=== PATIENT | female | born 1980 | race Caucasian/White ===

== ENCOUNTER → 2017-02-18 | Outpatient (CLI) | payer BC ==
[~2017-02-18] MED LIST: CEPH-443 PO; IBUP800T25 PO; ONDA4TAB35 PO
[2017-02-18 09:26] LABS: BASOPHILS % 0.3 % (0.0-2.0); EOSINOPHILS # 0.1 10^3/ul (0.0-0.5); EOSINOPHILS % 1.4 % (0.0-7.0); HEMATOCRIT 37.8 % (37.0-47.0); HEMOGLOBIN 12.5 g/dl (12.0-16.0); LYMPHOCYTES # 1.6 10^3/ul (0.8-2.9); LYMPHOCYTES % 21.5 % (15.0-51.0); MEAN CORPUSCULAR HEMOGLOBIN 30.1 pg (29.0-33.0); MEAN CORPUSCULAR HGB CONC 33.1 g/dl (32.0-37.0); MEAN CORPUSCULAR VOLUME 91.1 fl (82.0-101.0); MEAN PLATELET VOLUME 10.7 fl (7.4-10.4); MONOCYTE # 0.4 10^3/ul (0.3-0.9); MONOCYTES % 5.9 % (0.0-11.0); NEUTROPHIL # 5.2 10^3/ul (1.6-7.5); NEUTROPHILS % 70.6 % (39.0-77.0); PLATELET COUNT 241 10^3/UL (140-415); RED BLOOD COUNT 4.15 10^6/ul (4.20-5.40); RED CELL DISTRIBUTION WIDTH 12.2 % (11.5-14.5); WHITE BLOOD COUNT 7.3 10^3/ul (4.8-10.8)
[2017-02-18 09:43] LABS: ALBUMIN 4.2 g/dl (3.3-4.9); ALBUMIN/GLOBULIN RATIO 1.07; BILIRUBIN,INDIRECT 0.3 mg/dl (0-1.1); BILIRUBIN,TOTAL 0.3 mg/dl (0.2-1.3); CALCIUM 9.1 mg/dl (8.4-10.2); CHOL/HDL RATIO 2.5 RATIO; CREATININE 0.59 mg/dl (0.44-1.00); TOTAL PROTEIN 8.1 g/dl (6.1-8.1)
--- NOTE | 2017-02-18 10:02 | RADRPT ---
PROCEDURE: XR Hand. CLINICAL INDICATION: Right thumb pain, no trauma TECHNIQUE: 3 views of the right hand were obtained. COMPARISON: No prior studies are available for comparison. FINDINGS: There is no acute fracture. There is minimal radial subluxation of the first metacarpal base. Mild degenerative change at the first carpometacarpal joint are present with small marginal osteophy te formation. Mild adjacent soft tissue swelling at the first CMC joint otherwise soft tissues are normal. Chronic deformity of the scaphoid likely is from a remote fracture. IMPRESSION: 1. No radiographic evidence of acute osseous abnormality. 2. Mild first carpometacarpal joint osteoarthrosis with minimal radial subluxation of the first meta carpal base and mild overlying soft tissue swelling. RPTAT: UU .Los Castillo MD, Date Time Electronically viewed and signed by .Lso Castillo MD, on 02/18/2017 10:02 .K/
[2017-02-18 11:46] LABS: THYROID STIMULATING HORMONE 0.428 MIU/L (0.465-4.680)
[2017-02-19 13:46] LABS: ANA SCREEN NEGATIVE (NEGATIVE)
== END | disposition home or self-care (01) ==
LOC: LAB 08:40
PROVIDERS: ATTEND Internal Medicine
DX: E78.5 Hyperlipidemia, unspecified (principal); D64.9 Anemia, unspecified; E03.9 Hypothyroidism, unspecified; R73.03 Prediabetes
CPT/HCPCS: 80053; 80061; 83036; 84436; 84443; 85025; 85651; 86038

== ENCOUNTER 2017-02-23 10:04 | Inpatient (IN) | payer BC ==
[~2017-02-23] VITALS: Ht 167.6 cm; Wt 72.6 kg
[2017-02-23] MEDS ORDERED: morphine 4 MG/ML VIAL IV STA (10:09)
[2017-02-23] MEDS ORDERED: ONDANSETRON 4 MG INJ IV STA ×2 (10:09→10:32)
[2017-02-23] MEDS ORDERED: HYDROmorphONE 1 MG/ML SYG IV STA (10:32)
--- NOTE | 2017-02-23 10:35 | RADRPT ---
PROCEDURE: XR Chest. CLINICAL INDICATION: chest pain, abdominal pain TECHNIQUE: Single frontal view of the chest was obtained COMPARISON: None FINDINGS: The heart and mediastinum are within normal limits. The lungs are clear. There is no pleural effusion or pneumothorax. RPTAT: AA IMPRESSION: No acute disease. .Heron Torres MD, MD Date Time Electronically viewed and signed by .Heron Torres MD, on 02/23/2017 10:35 .S/
[2017-02-23 10:44] LABS: BASOPHILS % 0.3 % (0.0-2.0); EOSINOPHILS # 0.1 10^3/ul (0.0-0.5); EOSINOPHILS % 1.1 % (0.0-7.0); HEMATOCRIT 39.2 % (37.0-47.0); HEMOGLOBIN 13.1 g/dl (12.0-16.0); LYMPHOCYTES # 1.9 10^3/ul (0.8-2.9); LYMPHOCYTES % 21.5 % (15.0-51.0); MEAN CORPUSCULAR HEMOGLOBIN 30.3 pg (29.0-33.0); MEAN CORPUSCULAR HGB CONC 33.4 g/dl (32.0-37.0); MEAN CORPUSCULAR VOLUME 90.7 fl (82.0-101.0); MONOCYTE # 0.5 10^3/ul (0.3-0.9); MONOCYTES % 5.7 % (0.0-11.0); NEUTROPHIL # 6.2 10^3/ul (1.6-7.5); NEUTROPHILS % 71.1 % (39.0-77.0); PLATELET COUNT 254 10^3/UL (140-415); RED BLOOD COUNT 4.32 10^6/ul (4.20-5.40); RED CELL DISTRIBUTION WIDTH 12.2 % (11.5-14.5); WHITE BLOOD COUNT 8.8 10^3/ul (4.8-10.8)
[2017-02-23] MEDS ORDERED: BELLADONNA/PHENOBARBITAL TAB PO STA (10:47)
[2017-02-23] MEDS ORDERED: LIDOCAINE/MYLANTA 40 ML BTL PO STA (10:47)
[2017-02-23] MEDS ORDERED: LORAZEPAM 2 MG INJ IV ONE (11:00)
[2017-02-23 11:01] LABS: INR 0.99; PROTIME 13.1 Sec (12.2-14.2)
[2017-02-23 11:02] LABS: ALANINE AMINOTRANSFERASE 97 IU/L (13-69); ALBUMIN 4.4 g/dl (3.3-4.9); ALBUMIN/GLOBULIN RATIO 0.95; ALKALINE PHOSPHATASE 84 IU/L (42-121); AMYLASE 97 U/L (11-123); ANION GAP 13 (8-16); ASPARTATE AMINO TRANSFERASE 54 IU/L (15-46); BILIRUBIN,INDIRECT 0.2 mg/dl (0-1.1); BILIRUBIN,TOTAL 0.2 mg/dl (0.2-1.3); BLOOD UREA NITROGEN 25 mg/dl (7-20); CALCIUM 9.7 mg/dl (8.4-10.2); CARBON DIOXIDE 25 mmol/L (21-31); CHLORIDE 104 mmol/L (97-110); CREATINE KINASE 45 IU/L (23-200); CREATININE 0.72 mg/dl (0.44-1.00); GLUCOSE 86 mg/dl (70-220); POTASSIUM 3.9 mmol/L (3.5-5.1); SODIUM 138 mmol/L (135-144)
[2017-02-23] MEDS ORDERED: SOD CHLORIDE 0.9% 1,000 ML IV STA (11:27)
[2017-02-23 11:28] LABS: PARTIAL THROMBOPLASTIN TIME 26.4 Sec (25.0-35.0)
[2017-02-23 11:37] LABS: CK-MB 0.28 ng/ml (0.0-2.4)
[2017-02-23 11:39] LABS: TROPONIN-I < 0.012 ng/ml (0.00-0.12)
[2017-02-23 11:45] LABS: D-DIMER 581.4 ng/ml (<460)
[2017-02-23] MEDS ORDERED: IOHEXOL 350MG/ML 50 ML BTL ONE (12:31)
[2017-02-23] MEDS ORDERED: SOD CHLORIDE 0.9% 100 ML ONE (12:31)
[2017-02-23] MEDS ORDERED: IOHEXOL 100 ML ONE (12:31)
--- NOTE | 2017-02-23 13:13 | RADRPT ---
PROCEDURE: CT angiogram of the chest abdomen and pelvis with contrast. CLINICAL INDICATION: Rule out aortic dissection. Chest pain and abdominal pain TECHNIQUE: CT scan of the chest with contrast was performed on a multidetector high-resolution CT scan. The patient was scanned following the uncomplicated intravenous administration of 115 ml Omni paque 350. Coronal and sagittal reformatted images were obtained from the axial source images. Stand jose armando CT angiogram of the chest with contrast protocols were performed. 2-D and 3-D reformats were per formed. The total exam CTDI equals 37.56 mGy and the total exam DLP equals 797.38 mGy-cm. One or more of the following dose reduction techniques were used: - Automated exposure control. - Adjustment of the mA and/or kV according to patient size. Use of iterative reconstruction technique. COMPARISON: Chest earlier same day FINDINGS: The aorta is normal in size without evidence of aneurysm or dissection. No periaortic fluid collecti ons. The central pulmonary arteries are unremarkable without pulmonary emboli no evidence of pulmonary ar terial hypertension. No right heart strain. The brachial cephalic artery is unremarkable. The right and left subclavian arteries are unremarkabl e. The proximal aspects of the right and left common carotid and vertebral arteries are unremarkable . The celiac axis, SMA, JORGE, and solitary right and left renal arteries are unremarkable. The right left common iliac, internal iliac and external iliac arteries are unremarkable. The right and left common femoral and proximal aspects of the right and left superficial femoral and deep femo ral arteries are unremarkable. Specifically no hemodynamically significant stenosis, NASCET criteria. Negative for aneurysm dissect ion or thrombosis. There are bilateral breast implants in place. Tiny fat containing umbilical hernia without herniated bowel or strangulation. The thoracic abdominal pelvic mccain are otherwise unremarkable. The heart is normal limits in size without pericardial effusion. No evidence of pleural effusions or pneumothoraces. Minimal dependent lung atelectasis. Remainder lungs are clear without infiltrates o r pulmonary nodules. No evidence of mediastinal hilar or axillary lymphadenopathy. The liver spleen pancreas adrenal glands kidneys and gallbladder are unremarkable. No evidence bilia ry ductal dilation or hydronephrosis. The urinary bladder is unremarkable. The uterus is anteverted anteflexed but otherwise unremarkable. In the right adnexa are cystic maki s consistent with ovarian cysts approximately 3 cm each. A pelvic ultrasound may be helpful for furt her evaluation. No evidence of left adnexal masses. Negative for intra-abdominal free air, free flui d, abscesses or lymphadenopathy. The stomach, small bowel, large bowel and appendix are unremarkable. IMPRESSION: 1. No evidence of aortic aneurysm or dissection. 2. No evidence of central pulmonary emboli. Negative for pulmonary arterial hypertension or right h eart strain. 3. No hemodynamically significant stenosis (NASCET criteria), dissection aneurysm or thrombosis. 4. No evidence of acute lung infiltrates, pulmonary nodules,, thoracic effusions or pneumothoraces. 5. No evidence of visceral masses. Negative for obstructive uropathy or biliary ductal dilation. 6. No evidence of abdominal free air fluid abscesses or lymphadenopathy. 7. No calcified urinary calculi or obstructive uropathy. 8. Right adnexal cystic mass as likely ovarian cyst. Pelvic ultrasound may be helpful for further e valuation. 9. Tiny fat containing a focal hernia without herniated bowel or strangulation. 10. No evidence of visceral masses. Negative for gastrointestinal disease. RPTAT:AAJJ Physician Silvano Date Time Electronically viewed and signed by Physician Silvano on 02/23/2017 13:13 /
[2017-02-23 14:00] VITALS: TEMP 98.9
--- NOTE | 2017-02-23 14:22 | ERD ---
ER Documentation Chief Complaint Date/Time DATE: 02/23/17 TIME: 14:17 Chief Complaint epigastric pain x 30mins ago, nausea no vomiting HPI This is a 36-year-old female with no past medical history who is an employee at [employer] and while at work developed a sudden onset of severe retrosternal and epigastric pain. She stated the pain was 10 out of 10 in intensity. It was a pressure-like sensation that began to radiate to the left side of her chest and back. She denied any numbness or tingling of her neck or left upper extremity. She states she has never had any similar pain in the past. She denies any shortness of breath at rest or exertion. She is no swelling or tenderness of her lower extremities. She denies any lower abdominal pain. She felt lightheaded became pale and had mild diaphoresis. She was immediately instructed to come to the emergency department to be further evaluated. She was standing at the onset of her symptoms no alleviating or exacerbating factors to her pain. ROS All systems reviewed and are negative except as per history of present illness. Medications Home Meds Discontinued Reported Medications Ibuprofen* (Motrin*) 800 Mg Tab, PO Q8 12/06/11 Discontinued Scripts Cephalexin* (Keflex*) 500 Mg Capsule, 500 MG PO QID for 5 Days, CAP Prov:NAKUL VAUGHN MD 10/15/15 Ondansetron Hcl* (Zofran* ODT) 4 mg -ODT Tab.disper, 4 MG PO Q6 Y for NAUSEA AND /OR VOMITING, #30 TAB Prov:TAISHA ROBERTO 10/11/15 Allergies Allergies: Coded Allergies: erythromycin base (Verified Allergy, Mild, 10/15/15) PMhx/Soc History of Surgery: Yes (left wrist surgery) Anesthesia Reaction: No Hx Neurological Disorder: No Hx Respiratory Disorders: No Hx Cardiac Disorders: No Hx Psychiatric Problems: No Hx Miscellaneous Medical Probl: No Hx Alcohol Use: No Hx Substance Use: No Hx Tobacco Use: No Smoking Status: Never smoker Physical Exam Vitals Vital Signs Date Time Temp Pulse Resp B/P Pulse Ox O2 Delivery O2 Flow Rate FiO2 02/23/17 11:06 84 23 102/58 100 Room Air 02/23/17 10:30 87 16 132/75 100 02/23/17 10:24 98.5 88 16 115/78 100 Physical Exam Constitutional:Well-developed. Well-nourished. Appeared to be in severe discomfort. HEENT:Normocephalic. Atraumatic.Pupils were equal round reactive to light. Moist mucous membranes.No tonsillar exudates. Neck: No nuchal rigidity. No lymphadenopathy. No posterior cervical spine tenderness or step-offs. Respiratory: Not using accessory muscles of respiration.Lungs were clear to auscultation bilaterally. No rhonchi. No rales. No wheezing. Cardiovascular: Regular rate regular rhythm.No murmurs. No rubs were appreciated.S1, S2 normal. Distal pulses are palpable 2+ bilaterally. GI: Abdomen was soft. Nontender. Reproducible epigastric terminal tenderness. Non Distended. No pulsatile abdominal masses or bruits. No rebound. No guarding. Bowel sounds were present and normal. Muscle skeletal: Full range of motion of both the upper and lower extremities bilaterally.Normal muscle tone.No assymetrical calf tenderness or swelling. Skin: Pallor. Diaphoretic. No petechia, no purpura. No lesions on the palms or the soles of the feet. No maculopapular rash. NEURO: Patient was alert, awake, orientated x3.No facial droop. Gait observed and normal with no ataxia.Speech had regular rate and rhythm. No focal neurological deficits. Result Diagram: 02/23/17 1020 02/23/17 1020 Results 24 hrs Laboratory Tests Test 02/23/17 10:20 White Blood Count 8.810^3/ul Red Blood Count 4.3210^6/ul Hemoglobin 13.1g/dl Hematocrit 39.2% Mean Corpuscular Volume 90.7fl Mean Corpuscular Hemoglobin 30.3pg Mean Corpuscular Hemoglobin Concent 33.4g/dl Red Cell Distribution Width 12.2% Platelet Count 38058^3/UL Mean Platelet Volume 11.0fl Neutrophils % 71.1% Lymphocytes % 21.5% Monocytes % 5.7% Eosinophils % 1.1% Basophils % 0.3% Nucleated Red Blood Cells % 0.0/100WBC Neutrophils # 6.210^3/ul Lymphocytes # 1.910^3/ul Monocytes # 0.510^3/ul Eosinophils # 0.110^3/ul Basophils # 0.010^3/ul Nucleated Red Blood Cells # 0.010^3/ul Prothrombin Time 13.1Sec Prothrombin Time Ratio 1.0 INR International Normalized Ratio 0.99 Activated Partial Thromboplast Time 26.4Sec D-Dimer 581.40ng/ml D-Dimer Comment Sodium Level 138mmol/L Potassium Level 3.9mmol/L Chloride Level 104mmol/L Carbon Dioxide Level 25mmol/L Anion Gap 13 Blood Urea Nitrogen 25mg/dl Creatinine 0.72mg/dl Glucose Level 86mg/dl Calcium Level 9.7mg/dl Total Bilirubin 0.2mg/dl Direct Bilirubin 0.00mg/dl Indirect Bilirubin 0.2mg/dl Aspartate Amino Transf (AST/SGOT) 54IU/L Alanine Aminotransferase (ALT/SGPT) 97IU/L Alkaline Phosphatase 84IU/L Creatine Kinase 45IU/L Creatine Kinase Index 0.6 Creatinine Kinase MB (Mass) 0.28ng/ml Troponin I < 0.012ng/ml Total Protein 9.0g/dl Albumin 4.4g/dl Globulin 4.60g/dl Albumin/Globulin Ratio 0.95 Amylase Level 97U/L Lipase 60U/L Serum HCG, Qualitative NEGATIVE Current Medications Medications (Trade) Dose Ordered Sig/Mita Route PRN Reason Start Time Stop Time Status Last Admin Dose Admin Morphine Sulfate (morphine) 4 mg ONCE STAT IV 02/23/17 10:09 02/23/17 10:12 DC 02/23/17 11:04 Ondansetron HCl (Zofran Inj) 4 mg ONCE STAT IV 02/23/17 10:09 02/23/17 10:12 DC 02/23/17 11:03 Lorazepam (Ativan) 1 mg ONCE ONCE IV 02/23/17 11:00 02/23/17 11:01 DC 02/23/17 11:05 Hydromorphone HCl (Dilaudid) 1 mg ONCE STAT IV 02/23/17 10:32 02/23/17 10:34 DC 02/23/17 11:05 Ondansetron HCl (Zofran Inj) 4 mg ONCE STAT IV 02/23/17 10:32 02/23/17 10:34 DC 02/23/17 11:04 Miscellaneous Medication (Gi Cocktail (2)) 40 ml ONCE STAT PO 02/23/17 10:47 02/23/17 10:49 DC 02/23/17 11:05 Belladonna/ Phenobarbital 2 tab 2 tab ONCE STAT PO 02/23/17 10:47 02/23/17 10:49 DC 02/23/17 11:03 Sodium Chloride (NS) 1,000 ml @ 1,000 mls/hr Q1H STAT IV 02/23/17 11:27 02/23/17 12:26 DC 02/23/17 11:43 IV Flush 10 ml 10 ml STK-MED ONCE .ROUTE 02/23/17 12:31 02/23/17 12:32 DC Sodium Chloride 100 ml @ ud STK-MED ONCE .ROUTE 02/23/17 12:31 02/23/17 12:32 DC Iohexol (Omnipaque) 100 ml @ ud STK-MED ONCE .ROUTE 02/23/17 12:31 02/23/17 12:32 DC Iohexol (Omnipaque 350mg/ ml) 50 ml STK-MED ONCE .ROUTE 02/23/17 12:31 02/23/17 12:32 DC Procedures/MDM The patient presented to the emergency department with epigastric and chest pain. My differential diagnosis included but was not limited to abdominal aortic aneurysm, choledocholithiasis, gallstone ileus, renal colic, pyelonephritis, pancreatitis, peptic ulcer disease, atypical myocardical infarction, mesenteric ischemia, GERD, pulmonary infarction. The patient was placed on a diagnostic cardiac sonographer, continuous pulse oximetry and IV access was established by nursing staff. An EKG was obtained to rule out myocardial ischemia. There was no elevation of LFTs to suggest ductal obstruction, cholangitis, cholecystiitis or hepatitis. Given that the urinalysis did not show bilirubinuria, my suspicion for common duct obstruction or hepatitis was low. 12 Lead EKG tracing ordered and reviewed by myself showed: Normal sinus rhythm of 74 bpm and no arrhythmia. ND interval normal. QRS duration normal. No ST segment elevation No ST segment depression. No changes consistent with acute ischemia. Chest radiograph showed no evidence of pneumonia pneumothorax or widened mediastinum The patient appeared to be in a significant amount discomfort despite being given intravenous morphine Ativan and Dilaudid. The patient was diaphoretic and had a low pretest probability according to the well's criteria for pulmonary embolism. I obtained a d-dimer and this was elevated. Given the severity of the patient's symptoms I did feel was necessary to obtain a CT scan of the patient's chest and abdomen to rule out pulmonary embolism or aortic dissection. The findings of the CT scan read by the radiologist and indicated the followin. No evidence of aortic aneurysm or dissection. 2. No evidence of central pulmonary emboli. Negative for pulmonary arterial hypertension or right heart strain. 3. No hemodynamically significant stenosis (NASCET criteria), dissection aneurysm or thrombosis. 4. No evidence of acute lung infiltrates, pulmonary nodules,, thoracic effusions or pneumothoraces. 5. No evidence of visceral masses. Negative for obstructive uropathy or biliary ductal dilation. 6. No evidence of abdominal free air fluid abscesses or lymphadenopathy. 7. No calcified urinary calculi or obstructive uropathy. 8. Right adnexal cystic mass as likely ovarian cyst. Pelvic ultrasound may be helpful for further evaluation. 9. Tiny fat containing a focal hernia without herniated bowel or strangulation. 10. No evidence of visceral masses. Negative for gastrointestinal disease. Patient will be admitted for further evaluation into the cause of the patient's epigastric and chest discomfort. She did receive aspirin p.o. She will be admitted to observation under the care of her primary care physician Dr. Cevallos in serious condition Departure Diagnosis: Primary Impression: Epigastric pain Condition: Serious SUSY GONSALES Feb 23, 2017 14:22
[2017-02-23] MEDS ORDERED: ONDANSETRON 4 MG INJ IV PRN (15:00)
[2017-02-23] MEDS ORDERED: ACETAMINOPHEN 325 MG TAB PO PRN (15:00)
[2017-02-23] MEDS ORDERED: ASPIRIN 81 MG TAB PO ONE (15:00)
[2017-02-23 15:53] VITALS: Ht 167.6 cm; Wt 72.6 kg
[2017-02-23 16:30] VITALS: PULSE 69
[2017-02-23] MEDS ORDERED: morphine 10 MG INJ IM PRN (16:30)
[2017-02-23 16:34] VITALS: BP 119/65; RESP 18
[2017-02-23] MEDS: ONDANSETRON 4 MG INJ IV PRN (16:46)
[2017-02-23] MEDS: SUCRALFATE (100 MG/ML) 10ML CUP GTB SCH ×2 (16:46→20:25)
[2017-02-23] MEDS: DEXTROSE 5%-0.45% NACL 1,000 ML IV SCH (17:52)
[2017-02-23 18:58] LABS: CREATINE KINASE 33 IU/L (23-200)
[2017-02-23 19:10] LABS: CK-MB 0.32 ng/ml (0.0-2.4)
[2017-02-23 19:38] LABS: TROPONIN-I < 0.012 ng/ml (0.00-0.12)
[2017-02-23] MEDS ORDERED: ZOLPIDEM 5 MG TAB PO PRN (20:00)
[2017-02-23 20:03] VITALS: PULSE 75
--- NOTE | 2017-02-23 20:15 | CONS ---
Date/Time of Note Date/Time of Note DATE: 02/23/17 TIME: 20:15 Assessment/Plan Assessment/Plan Additional Assessment/Plan Abdominal and chest pain -Patient with severe abdominal and chest pain which is sharp in nature and worse with deep inspiration. She is status post CT angiogram which is ruled out aortic dissection, pulmonary emboli. There was no evidence of hydronephrosis as well. Serial cardiac enzymes remain negative, ECG with no significant ischemic abnormalities. Bedside echocardiogram currently being performed [place] with no evidence of pericardial effusion with normal ejection fraction. It appears patient's symptoms improved after taking Carafate. Would concurrently evaluate other noncardiac causes of patient's symptoms. Continue on telemetry monitoring. Consultation Date/Type/Reason Admit Date/Time Feb 23, 2017 at 14:43 Type of Consultation: cv Reason for Consultation Chest pain and abdominal pain Hx of Present Illness This is a 36-year-old female with no significant past medical history who presents with symptoms of severe abdominal and chest pain. Patient was at work and developed a stabbing-like sensation which began in the epigastric region radiating to her left shoulder. Pain was sharp in nature and with deep breathing would exacerbate pain. There was no associated shortness of breath patient with shallow breathing secondary to pain. Symptoms worsen over the next few minutes and patient went to the emergency room. Patient was given multiple pain medications including GI cocktail. Patient states she felt better after taking aspirin and a "pink liquid". She otherwise denies exertional chest pain or shortness of breath, dizziness or palpitations or shortness of breath. She had a similar episode yesterday which lasted a few minutes and improved after taking aspirin and ibuprofen. 12 point review of systems was performed with all pertinent positives and negatives mentioned above and all else is negative Past Medical History Medical History: no pertinent history Family History Significant Family History: no pertinent family hx Social History Alcohol Use: none Smoking Status: Never smoker Drug Use: none Other Social History Works in the radiology department Exam/Review of Systems Vital Signs Vitals Vital Signs Date Time Temp Pulse Resp B/P Pulse Ox O2 Delivery O2 Flow Rate FiO2 02/23/17 16:34 98.3 74 18 119/65 98 02/23/17 16:02 Room Air Exam No apparent distress, at bedside Constitutional: alert, oriented Head: normocephalic Respiratory: clear to auscultation, normal air movement Cardiovascular: other (S1-S2 heard), regular rate and rhythm Gastrointestinal: bowel sounds, other (Discomfort with deep palpation in the epigastric region and right upper quadrant), soft Extremities: other (No edema) Results Result Diagram: 02/23/17 1020 02/23/17 1020 Results 24 hrs Laboratory Tests Test 02/23/17 10:20 02/23/17 18:26 White Blood Count 8.8 # Red Blood Count 4.32 Hemoglobin 13.1 Hematocrit 39.2 Mean Corpuscular Volume 90.7 Mean Corpuscular Hemoglobin 30.3 Mean Corpuscular Hemoglobin Concent 33.4 Red Cell Distribution Width 12.2 Platelet Count 254 Mean Platelet Volume 11.0 H Neutrophils % 71.1 Lymphocytes % 21.5 Monocytes % 5.7 Eosinophils % 1.1 Basophils % 0.3 Nucleated Red Blood Cells % 0.0 Neutrophils # 6.2 Lymphocytes # 1.9 Monocytes # 0.5 Eosinophils # 0.1 Basophils # 0.0 Nucleated Red Blood Cells # 0.0 Prothrombin Time 13.1 Prothrombin Time Ratio 1.0 INR International Normalized Ratio 0.99 Activated Partial Thromboplast Time 26.4 D-Dimer 581.40 H D-Dimer Comment Sodium Level 138 Potassium Level 3.9 Chloride Level 104 Carbon Dioxide Level 25 Anion Gap 13 Blood Urea Nitrogen 25 H Creatinine 0.72 Glucose Level 86 Calcium Level 9.7 Total Bilirubin 0.2 Direct Bilirubin 0.00 Indirect Bilirubin 0.2 Aspartate Amino Transf (AST/SGOT) 54 H Alanine Aminotransferase (ALT/SGPT) 97 H Alkaline Phosphatase 84 Creatine Kinase 45 33 Creatine Kinase Index 0.6 1.0 Creatinine Kinase MB (Mass) 0.28 0.32 Troponin I < 0.012 < 0.012 Total Protein 9.0 H Albumin 4.4 Globulin 4.60 H Albumin/Globulin Ratio 0.95 Amylase Level 97 Lipase 60 Serum HCG, Qualitative NEGATIVE Medications Medications Current Medications Ondansetron HCl 4 mg 4 mg Q4H PRN IV NAUSEA AND/OR VOMITING Last administered on 02/23/17 16:46; Admin Dose 4 MG; Start 02/23/17 at 16:30 Dextrose/Sodium Chloride (D5-1/2ns) 1,000 ml @ 75 mls/hr [id number] IV Last administered on 02/23/17 17:52; Admin Dose 75 MLS/HR; Start 02/23/17 at 16:30 Sucralfate (Carafate Susp) 1 gm QID GTB Last administered on 02/23/17t 16:46; Admin Dose 1 GM; Start 02/23/17 at 17:00 Pantoprazole (Protonix Iv) 40 mg DAILY@06 IV ; Start 02/24/17 at 06:00 Morphine Sulfate (morphine) 4 mg Q4H PRN IV PAIN LEVEL 7-10; Start 02/23/17 at 16:30 Enoxaparin Sodium (Lovenox) 30 mg HS SC ; Start 02/23/17 at 20:00 Aspirin (Halfprin) 81 mg DAILY PO ; Start 02/24/17 at 09:00 Zolpidem Tartrate (Ambien) 10 mg HS PRN PO INSOMNIA; Start 02/23/17 at 20:00 Procedures Procedures ECG with sinus rhythm, normal QRS duration, nonspecific ST abnormalities Francis Brand DO Feb 23, 2017 20:15
--- NOTE | 2017-02-23 20:18 | HP ---
DATE OF ADMISSION: 02/23/2017 CHIEF COMPLAINT/HISTORY OF PRESENT ILLNESS: Patient is a 36-year- old lady presenting to the emergency room with sudden onset of severe retrosternal and epigastric pain, felt like a pressure- like sensation and was radiating to the back and also described as burning in type, and the pain was constant, and there were no palpitations or shortness of breath. Patient did complain of some diaphoresis, and pain was also pleuritic. Patient had mild epigastric pain last night and denies having any prior history of peptic ulcer disease, GI bleeds. Patient was evaluated in the emergency room and was admitted. MEDICATIONS: None. ALLERGIES: AZITHROMYCIN. PRIOR SURGERIES: Include left wrist surgery by Dr. Pulido. REVIEW OF SYSTEMS: HEAD: Occasional headaches. Patient has been having mild hair loss over the last 2-1/2 months. EYES: No blurry vision or glaucoma. ENT: No sinusitis, tonsillitis, or hearing loss. NECK: No history of neck pain. No history of thyroid disease. CHEST: No bronchitis, hayfever or asthma. Patient does not smoke. CARDIOVASCULAR: No prior history of chest pains. No history of hyperlipidemia. GASTROINTESTINAL: No constipation, diarrhea, change of bowel habits. No history of hematemesis or melena. BMs every alternate day. Patient denies any prior history of peptic ulcer disease or GI bleeds. GENITOURINARY: No dysuria, hematuria, or kidney stones. Has been followed by [facility] regularly. SKIN: No history of moles. History of vitiligo, which has worsened since last 4 years. FAMILY HISTORY: Father at age 54, cirrhosis with complications. Mother has history of skin cancer. Patient had 1 brother, who of Vuong's sarcoma. PHYSICAL EXAMINATION: GENERAL APPEARANCE: Patient is an average-built female, who is in moderate distress. HEENT: Normocephalic, atraumatic. Pupils are equal. Mucous membranes dry. NECK: No lymphadenopathy. No bruits. CHEST: Decreased breath sounds at bases. No rales or rhonchi. No pleural rub. HEART: S1, S2. No definite gallops or murmurs. ABDOMEN: Soft, nontender. Mild epigastric tenderness, with no rebound. Bowel sounds are active. No bruits heard over the epigastrium. No hepatosplenomegaly. EXTREMITIES: No edema. Homans sign is negative. NEUROLOGIC: No localizing or lateralizing signs. LABORATORY: Sodium 138, potassium 3.9. Troponin less than 0.012. WBC count 8.8, hematocrit 39.2, platelet count 254,000. D-dimer 581.4. Chest x-ray shows heart, mediastinum normal. Lungs are clear. No pleural effusion. No pneumothorax. CTA of the chest, abdomen and pelvis shows no evidence of aneurysm or dissection of the aorta, pulmonary arteries without pulmonary emboli. No evidence of pulmonary hypertension. EKG shows nonspecific ST-T-wave changes. IMPRESSION: 1. Atypical chest pain/epigastric pain. So far, no evidence of acute myocardial infarction, dissection or pulmonary embolism. 2. Positive peptic ulcer disease. Esophagitis to be considered. PLAN: Will repeat troponin and EKG. Start the patient on Lovenox. Continue PPI, along with Carafate. Will request Dr. Brand for Cardiology evaluation. Patient has had outpatient workup, normal lipid panel. We will hold statins for now. Patient had received aspirin x1. Will continue aspirin, along with antacids. Closely monitor the rhythm. Treat symptomatically. Dictated By: Chuy Cevallos MD /radha/bruce /Document#: [id number]
[2017-02-23 20:28] VITALS: BP 119/62; RESP 18
[2017-02-23] MEDS: ENOXAPARIN 30 MG/0.3 ML SYG SC SCH (20:34)
--- NOTE | 2017-02-23 20:54 | RADRPT ---
Echocardiogram Report Patient Name: DERRICK CASTILLO Gender: Female Date: 1980 Study Date: 23-Feb-2017 Energy Economist: [facility] Location: 518-A Ref. Physician: FATUMA PERRY Quality: Adequate Procedures: Transthoracic echocardiogram with complete 2D, M-Mode, and doppler examination. Indications: Chest Pain. 2D/M Mode Doppler Measurement Value Normal Ranges Measurement Value Normal Ranges LVIDd 2D 4.4 3.5 - 5.6 cm AV Peak [place] 1.7 m/sec LVIDs 2D 2.8 2.1 - 4.1 cm AV Peak PG 12.0 mmHg FS 2D 35.2 % LVOT Peak [place] 1.3 m/sec LVPWd 2D 0.9 0.6 - 1.1 cm LVOT Peak PG 7.0 mmHg IVSd 2D 0.9 0.6 - 1.1 cm MV E Peak [place] 1.1 m/sec IVS/LVPW 2D 1.0 MV A Peak [place] 0.9 m/sec AoR Diam 2D 2.6 2.0 - 3.7 cm MV E/A 1.2 LA/Ao 2D 1 0 - 1 MV Decel Time 190 msec EDV 2D 83.5 cm3 MV E/A 1.2 ESV 2D 22.7 cm3 TR Peak Irwin 2.8 m/sec LA Dimen 2D 3.8 2.3 - 4.0 cm TR Peak PG 31.0 mmHg RVSP 34.0 mmHg Findings Left Ventricle: Normal left ventricular systolic function. Normal left ventricular cavity size. Normal left ventricular wall thickness. Ejection fraction is visually estimated at 65 %. Tissue Doppler/Mitral Doppler indices are within normal limits. Right Ventricle: Normal right ventricular size. Normal right ventricular systolic function. Left Atrium: The left atrium is normal in size. Right Atrium: The right atrium is normal in size. Mitral Valve: Normal appearance and function of the mitral valve with trace physiologic regurgitation. Aortic Valve: No significant aortic stenosis or insufficiency. Aortic valve not well visualized. Tricuspid Valve: Normal appearance and function of the tricuspid valve with trace physiologic regurgitation. Estimated peak PA systolic pressure 34 mmHg. Pulmonic Valve: Pulmonic valve not well visualized. There is trace pulmonic regurgitation. Pericardium: Normal pericardium with no significant pericardial effusion. Aorta: Normal aortic root. IVC: Normal size and normal respiratory collapse consistent with normal right atrial pressure. Conclusions 1.Normal left ventricular systolic function. Normal left ventricular cavity size. Normal left ventricular wall thickness. Ejection fraction is visually estimated at 65 %. Tissue Doppler/Mitral Doppler indices are within normal limits. 2.Normal right ventricular size. Normal right ventricular systolic function. 3.The left atrium is normal in size. 4.The right atrium is normal in size. 5.No significant valvular stenosis or regurgitation seen. 6.Normal pericardium with no significant pericardial effusion. Electronically Signed By: Francis Brand 23-Feb-2017 20:53:44 -0700 Patient Name: DERRICK CASTILLO Study Date: 23-Feb-2017 [id number]
[2017-02-23 23:54] VITALS: BP 101/66; RESP 19
[2017-02-24] VITALS (11 sets, daily range): BP systolic 93–115; BP diastolic 51–62; PULSE 48–77; RESP 18–20
[2017-02-24 01:21] LABS: CREATINE KINASE 35 IU/L (23-200)
[2017-02-24 01:28] LABS: CK-MB 0.27 ng/ml (0.0-2.4)
[2017-02-24 01:46] LABS: TROPONIN-I < 0.012 ng/ml (0.00-0.12)
[2017-02-24] MEDS: DEXTROSE 5%-0.45% NACL 1,000 ML IV SCH ×3 (05:50→14:19)
[2017-02-24] MEDS: PANTOPRAZOLE 40 MG INJ IV SCH (06:47)
[2017-02-24] MEDS: morphine 4 MG/ML VIAL IV PRN ×2 (07:07→22:05)
[2017-02-24] MEDS: ONDANSETRON 4 MG INJ IV PRN ×4 (07:30→22:04)
[2017-02-24 08:32] LABS: BASOPHILS % 0.3 % (0.0-2.0); EOSINOPHILS # 0.1 10^3/ul (0.0-0.5); EOSINOPHILS % 0.6 % (0.0-7.0); HEMATOCRIT 31.1 % (37.0-47.0); HEMOGLOBIN 10.6 g/dl (12.0-16.0); LYMPHOCYTES # 1.2 10^3/ul (0.8-2.9); LYMPHOCYTES % 15.5 % (15.0-51.0); MEAN CORPUSCULAR HEMOGLOBIN 30.7 pg (29.0-33.0); MEAN CORPUSCULAR HGB CONC 34.1 g/dl (32.0-37.0); MEAN CORPUSCULAR VOLUME 90.1 fl (82.0-101.0); MEAN PLATELET VOLUME 11.7 fl (7.4-10.4); MONOCYTE # 0.5 10^3/ul (0.3-0.9); MONOCYTES % 6.2 % (0.0-11.0); NEUTROPHIL # 6.2 10^3/ul (1.6-7.5); NEUTROPHILS % 77.1 % (39.0-77.0); PLATELET COUNT 164 10^3/UL (140-415); RED BLOOD COUNT 3.45 10^6/ul (4.20-5.40); RED CELL DISTRIBUTION WIDTH 12.6 % (11.5-14.5)
[2017-02-24 09:01] LABS: CREATINE KINASE 31 IU/L (23-200)
[2017-02-24 09:02] LABS: ALBUMIN 3.3 g/dl (3.3-4.9); ALBUMIN/GLOBULIN RATIO 1.03; BILIRUBIN,INDIRECT 0.2 mg/dl (0-1.1); BILIRUBIN,TOTAL 0.2 mg/dl (0.2-1.3); CALCIUM 8.6 mg/dl (8.4-10.2); CREATININE 0.66 mg/dl (0.44-1.00); MAGNESIUM 1.7 mg/dl (1.7-2.5); POTASSIUM 3.8 mmol/L (3.5-5.1); TOTAL PROTEIN 6.5 g/dl (6.1-8.1)
[2017-02-24] MEDS: SUCRALFATE (100 MG/ML) 10ML CUP GTB SCH ×4 (09:03→20:43)
[2017-02-24] MEDS: ASPIRIN (EC) 81 MG TAB PO SCH (09:03)
[2017-02-24 09:04] LABS: C-REACTIVE PROTEIN 2.1 mg/dl (0.0-0.9)
[2017-02-24 09:11] LABS: CK-MB 0.26 ng/ml (0.0-2.4)
[2017-02-24 09:16] LABS: TROPONIN-I < 0.012 ng/ml (0.00-0.12)
--- NOTE | 2017-02-24 12:36 | CONS ---
Date/Time of Note Date/Time of Note DATE: 02/24/17 TIME: 12:34 Assessment/Plan Assessment/Plan Additional Assessment/Plan Abdominal and chest pain Ejection fraction Mildly elevated LFTs -Serial cardiac enzymes remain negative, echocardiogram with no effusion and normal ejection fraction. Patient with mildly elevated LFTs, would order gallbladder ultrasound. Symptoms do not appear cardiac in origin at the current time. Consultation Date/Type/Reason Admit Date/Time Feb 23, 2017 at 14:43 Initial Consult Date Type of Consultation: cv 24 HR Interval Summary Free Text/Dictation Still with episodes of abdominal pain and chest pain which is sharp in nature. Denies shortness of breath, dizziness. Exam/Review of Systems Vital Signs Vitals Vital Signs Date Time Temp Pulse Resp B/P Pulse Ox O2 Delivery O2 Flow Rate FiO2 02/24/17 12:28 48 02/24/17 11:47 Room Air 02/24/17 11:08 98.3 18 93/51 100 Intake and Output 02/23/17 02/23/17 02/24/17 15:00 23:00 07:00 Intake Total 125 ml 900 ml Output Total 3 ml Balance 122 ml 900 ml Exam No apparent distress Constitutional: alert, oriented Head: normocephalic Respiratory: clear to auscultation, normal air movement Cardiovascular: other (S1-S2 heard), regular rate and rhythm Gastrointestinal: bowel sounds, soft, tender (Epigastric and bilateral upper quadrant regions) Extremities: other (No edema) Results Result Diagram: 02/24/17 0721 02/24/17 0721 Results 24 hrs Laboratory Tests Test 02/23/17 18:26 02/24/17 00:43 02/24/17 07:21 Creatine Kinase 33 35 31 Creatine Kinase Index 1.0 0.8 0.8 Creatinine Kinase MB (Mass) 0.32 0.27 0.26 Troponin I < 0.012 < 0.012 < 0.012 White Blood Count 8.0 Red Blood Count 3.45 #L Hemoglobin 10.6 L Hematocrit 31.1 #L Mean Corpuscular Volume 90.1 Mean Corpuscular Hemoglobin 30.7 Mean Corpuscular Hemoglobin Concent 34.1 Red Cell Distribution Width 12.6 Platelet Count 164 # Mean Platelet Volume 11.7 H Neutrophils % 77.1 H Lymphocytes % 15.5 Monocytes % 6.2 Eosinophils % 0.6 Basophils % 0.3 Nucleated Red Blood Cells % 0.0 Neutrophils # 6.2 Lymphocytes # 1.2 Monocytes # 0.5 Eosinophils # 0.1 Basophils # 0.0 Nucleated Red Blood Cells # 0.0 Sodium Level 139 Potassium Level 3.8 Chloride Level 110 Carbon Dioxide Level 23 Anion Gap 10 Blood Urea Nitrogen 9 # Creatinine 0.66 Glucose Level 93 Calcium Level 8.6 Magnesium Level 1.7 Total Bilirubin 0.2 Direct Bilirubin 0.00 Indirect Bilirubin 0.2 Aspartate Amino Transf (AST/SGOT) 84 H Alanine Aminotransferase (ALT/SGPT) 130 H Alkaline Phosphatase 97 C-Reactive Protein 2.1 H Total Protein 6.5 # Albumin 3.3 # Globulin 3.20 Albumin/Globulin Ratio 1.03 Amylase Level 44 Medications Medications Current Medications Ondansetron HCl 4 mg 4 mg Q4H PRN IV NAUSEA AND/OR VOMITING Last administered on 02/24/17 07:30; Admin Dose 4 MG; Start 02/23/17 at 16:30 Dextrose/Sodium Chloride (D5-1/2ns) 1,000 ml @ 75 mls/hr [id number] IV Last administered on 02/24/17 09:03; Admin Dose 75 MLS/HR; Start 02/23/17 at 16:30 Sucralfate (Carafate Susp) 1 gm QID GTB Last administered on 02/24/17 11:17; Admin Dose 1 GM; Start 02/23/17 at 17:00 Pantoprazole (Protonix Iv) 40 mg DAILY@06 IV Last administered on 02/24/17 06: 47; Admin Dose 40 MG; Start 02/24/17 at 06:00 Morphine Sulfate (morphine) 4 mg Q4H PRN IV PAIN LEVEL 7-10 Last administered on 02/24/17 07:07; Admin Dose 4 MG; Start 02/23/17 at 16:30 Enoxaparin Sodium (Lovenox) 30 mg HS SC Last administered on 02/23/17 20:34; Admin Dose 30 MG; Start 02/23/17 at 20:00 Aspirin (Halfprin) 81 mg DAILY PO Last administered on 02/24/17 09:03; Admin Dose 81 MG; Start 02/24/17 at 09:00 Zolpidem Tartrate (Ambien) 10 mg HS PRN PO INSOMNIA; Start 02/23/17 at 20:00 Francis Brand DO Feb 24, 2017 12:36
--- NOTE | 2017-02-24 14:12 | RADRPT ---
Vent Rate: 73 bpm RR Interval: 0 msec IN Interval: 166 msec QRS Duration: 74 msec QT Interval: 400 msec QTC Interval: 440 msec P-R-T [place]: 56 - 61 - 53 degrees Normal sinus rhythm with sinus arrhythmia Septal infarct , age undetermined Abnormal ECG Electronically Signed By: Francis Brand [id number]
--- NOTE | 2017-02-24 14:12 | RADRPT ---
Vent Rate: 58 bpm RR Interval: 0 msec HI Interval: 152 msec QRS Duration: 80 msec QT Interval: 400 msec QTC Interval: 392 msec P-R-T [place]: 32 - 46 - 41 degrees Sinus bradycardia with sinus arrhythmia Otherwise normal ECG Electronically Signed By: Francis Brand [id number]
--- NOTE | 2017-02-24 15:31 | PN ---
DATE: 02/24/2017 SUBJECTIVE: The patient has recurrent epigastric pain, chest pain, very sharp in nature. Denies any shortness of breath. No radiation. Nausea is improved. OBJECTIVE DATA: VITAL SIGNS: Temperature 98.3, blood pressure 93/51, heart rate 58 per minute, O2 sat 100 percent on room air. HEENT: Head normocephalic. Mild pallor with cyanosis. CHEST: Clinically clear. HEART: S1, S2. No definite gallops. ABDOMEN: Abdomen is soft. Mild epigastric and right upper quadrant tenderness without rebound. EXTREMITIES: No edema. Homans negative. LABORATORY DATA: Hematocrit 39.2 yesterday, dropped to 31.1 today. Platelet count 164,000. Potassium 3.8, BUN 9, creatinine 0.66. AST is 84, ALT is 130, alk phos is 97. Troponin x3 is negative. C-reactive protein is 2.1. Dr. Brand's cardiac consultation and recommendations greatly appreciated. IMPRESSION: 1. Atypical chest pain. So far, no evidence of acute myocardial infarction or acute coronary syndrome. 2. Elevated liver function tests with abdominal pain right upper quadrant pain. Cholelithiasis to be considered. 3. Mild anemia cough to consider low grade gastrointestinal bleed, query peptic ulcer disease. PLAN: We will obtain stool for OP x2. Closely monitor hemoglobin and hematocrit. Follow cardiac recommendations per Dr. Brand. The patient has already been scheduled for a gallbladder ultrasound. We will follow up on the results, if it is negative will need upper endoscopy. Dictated By: Chuy Cevallos MD /radha/daniel /Document#: [id number]
--- NOTE | 2017-02-24 17:59 | RADRPT ---
PROCEDURE: US Abdomen (right upper quadrant). CLINICAL INDICATION: Right upper quadrant abdomen pain. Elevated liver enzymes. TECHNIQUE: Multiple real-time longitudinal and transverse images of the right upper quadrant of th e abdomen were acquired utilizing a curved array transducer. Images were reviewed on a high-resoluti on PACS workstation. COMPARISON: None FINDINGS: The liver is borderline enlarged. Hepatic echogenicity is normal. There is no focal hepatic lesion. Color Doppler and pulsed Doppler sonography demonstrate normal a ntegrade flow in the portal vein. There is sludge in the gallbladder. There are no gallstones and there is no fluid around the gallbla dder. The bile ducts are normal with the common bile duct measuring 1.7 mm in diameter. The visualized portions of the pancreas are unremarkable with obscuration of the tail of the pancrea s. No free fluid is present. The right kidney measures 9.2 cm. There is normal echogenicity of the right kidney. There is no p erinephric fluid collection. No hydronephrosis, mass, or calculus is seen. IMPRESSION: 1. Borderline hepatomegaly. 2. Sludge in the gallbladder. No gallstones or evidence of cholecystitis. 3. Otherwise normal right upper quadrant abdomen ultrasound. RPTAT: QQ .Rafael Miranda MD, MD Date Time Electronically viewed and signed by .Rafael Miranda MD, on 02/24/2017 17:59 .R/
[2017-02-24] MEDS: ENOXAPARIN 30 MG/0.3 ML SYG SC SCH (20:43)
[2017-02-25] VITALS (20 sets, daily range): BP systolic 94–127; BP diastolic 51–79; PULSE 43–77; RESP 16–25
[2017-02-25] MEDS: DEXTROSE 5%-0.45% NACL 1,000 ML IV SCH (01:41)
[2017-02-25] MEDS: PANTOPRAZOLE 40 MG INJ IV SCH (06:00)
[2017-02-25 06:18] LABS: BASOPHILS % 0.5 % (0.0-2.0); EOSINOPHILS # 0.2 10^3/ul (0.0-0.5); EOSINOPHILS % 3.4 % (0.0-7.0); HEMATOCRIT 31.7 % (37.0-47.0); HEMOGLOBIN 10.7 g/dl (12.0-16.0); LYMPHOCYTES # 1.5 10^3/ul (0.8-2.9); LYMPHOCYTES % 27.5 % (15.0-51.0); MEAN CORPUSCULAR HEMOGLOBIN 30.6 pg (29.0-33.0); MEAN CORPUSCULAR HGB CONC 33.8 g/dl (32.0-37.0); MEAN CORPUSCULAR VOLUME 90.6 fl (82.0-101.0); MEAN PLATELET VOLUME 11.4 fl (7.4-10.4); MONOCYTE # 0.4 10^3/ul (0.3-0.9); MONOCYTES % 7.5 % (0.0-11.0); NEUTROPHIL # 3.4 10^3/ul (1.6-7.5); NEUTROPHILS % 60.9 % (39.0-77.0); PLATELET COUNT 157 10^3/UL (140-415); RED CELL DISTRIBUTION WIDTH 12.4 % (11.5-14.5); WHITE BLOOD COUNT 5.6 10^3/ul (4.8-10.8)
[2017-02-25 06:46] LABS: CALCIUM 8.4 mg/dl (8.4-10.2); CREATININE 0.73 mg/dl (0.44-1.00); MAGNESIUM 1.6 mg/dl (1.7-2.5); POTASSIUM 3.4 mmol/L (3.5-5.1)
[2017-02-25] MEDS: ASPIRIN (EC) 81 MG TAB PO SCH (09:00)
[2017-02-25] MEDS: SUCRALFATE (100 MG/ML) 10ML CUP GTB SCH ×4 (09:00→20:55)
[2017-02-25] MEDS ORDERED: POTASSIUM CHLORIDE 40 MEQ in DEXTROSE 5%-0.45% NACL 1,000 ML IV SCH (09:58)
[2017-02-25 10:49] LABS: HAAIG REFLEX REFLEX FILED
[2017-02-25] MEDS ORDERED: MAGNESIUM SULFATE 3 GM in SOD CHLORIDE 0.9% 100 ML IVPB ONE (11:30)
[2017-02-25] MEDS: ONDANSETRON 4 MG INJ IV PRN ×2 (12:09→23:10)
[2017-02-25] MEDS: D5W-0.45 NACL + KCL 40 MEQ 1,000 ML IV SCH ×2 (12:10→19:56)
[2017-02-25 13:34] LABS: HEPATITIS B CORE ANTIBODY NEGATIVE (NEGATIVE)
--- NOTE | 2017-02-25 15:25 | CONS ---
Date/Time of Note Date/Time of Note DATE: 02/25/17 TIME: 15:16 Assessment/Plan Assessment/Plan Additional Assessment/Plan Assessment * Chest/epigastric pain Cardiac vs non cardiac Plan * EGD today risks and benefit explained to patient agreed with the planned procedure * case discussed with Dr River * Further orders will depend on clinical course Consultation Date/Type/Reason Admit Date/Time Feb 23, 2017 at 14:43 Date of Consultation: Feb 25, 2017 Type of Consultation: gastroenterology Reason for Consultation epigastric pain Hx of Present Illness 36 year old female who presented with severe chest and epigastric pain with associated nausea and vomiting.Pain was described as severe sharp and retrosternal in location.Patiennt denies shortness of breath or dyspnea.Emergency roon workup revealed CTA revealed 1. No evidence of aortic aneurysm or dissection. 2. No evidence of central pulmonary emboli. Negative for pulmonary arterial hypertension or right heart strain. 3. No hemodynamically significant stenosis (NASCET criteria), dissection aneurysm or thrombosis. 4. No evidence of acute lung infiltrates, pulmonary nodules,, thoracic effusions or pneumothoraces. 5. No evidence of visceral masses. Negative for obstructive uropathy or biliary ductal dilation. 6. No evidence of abdominal free air fluid abscesses or lymphadenopathy. 7. No calcified urinary calculi or obstructive uropathy. 8. Right adnexal cystic mass as likely ovarian cyst. Pelvic ultrasound may be helpful for further evaluation. 9. Tiny fat containing a focal hernia without herniated bowel or strangulation. 10. No evidence of visceral masses. Negative for gastrointestinal disease. Ultrasound gallbladder revealed . Borderline hepatomegaly. Sludge in the gallbladder. No gallstones or evidence of cholecystitis. Otherwise normal right upper quadrant abdomen ultrasound. CBC revealed anemia and troponin was negative Presently patient has mild epigastric pain ,much improved than yesterday. Constitutional: improved, no complaints Eyes: no complaints ENT: no complaints Respiratory: no complaints Cardiovascular: no complaints Gastrointestinal: pain Genitourinary: no complaints Musculoskeletal: no complaints Skin: no complaints Neurologic: no complaints Endocrine: no complaints Lymphatic: no complaints Psychological: nl mood/affect, no complaints Immunologic: no complaints Past Medical History Medical History: no pertinent history Social History Alcohol Use: none Smoking Status: Never smoker Drug Use: none Exam/Review of Systems Vital Signs Vitals Vital Signs Date Time Temp Pulse Resp B/P Pulse Ox O2 Delivery O2 Flow Rate FiO2 02/25/17 12:00 63 02/25/17 10:57 98.5 18 106/57 97 02/24/17 16:26 Room Air Intake and Output 02/24/17 02/24/17 02/25/17 15:00 23:00 07:00 Intake Total 1075 ml 720 ml Balance 1075 ml 720 ml Exam Constitutional: alert, oriented, well developed Psych: nl mood/affect, no complaints Head: atraumatic, normocephalic Eyes: EOMI, PERRL, nl conjunctiva, nl lids, nl sclera ENMT: nl external ears & nose, nl lips & teeth, nl nasal mucosa & septum Neck: non-tender, supple Respiratory: clear to auscultation, normal air movement Cardiovascular: nl pulses, regular rate and rhythm Gastrointestinal: nl liver, spleen, soft, tender (epigastric tenderness) Musculoskeletal: nl extremities to inspection, nl gait and stance Extremities: normal pulses Neurological: CREAMERY WORKER II-XII intact, nl mental status, nl speech, nl strength Skin: nl turgor, No rash or lesions Lymph: nl lymph nodes Results Result Diagram: 02/25/17 0542 02/25/17 0542 Results 24 hrs Laboratory Tests Test 02/25/17 05:42 02/25/17 10:41 White Blood Count 5.6 # Red Blood Count 3.50 L Hemoglobin 10.7 L Hematocrit 31.7 L Mean Corpuscular Volume 90.6 Mean Corpuscular Hemoglobin 30.6 Mean Corpuscular Hemoglobin Concent 33.8 Red Cell Distribution Width 12.4 Platelet Count 157 Mean Platelet Volume 11.4 H Neutrophils % 60.9 Lymphocytes % 27.5 Monocytes % 7.5 Eosinophils % 3.4 Basophils % 0.5 Nucleated Red Blood Cells % 0.0 Neutrophils # 3.4 Lymphocytes # 1.5 Monocytes # 0.4 Eosinophils # 0.2 Basophils # 0.0 Nucleated Red Blood Cells # 0.0 Sodium Level 139 Potassium Level 3.4 L Chloride Level 109 Carbon Dioxide Level 24 Anion Gap 9 Blood Urea Nitrogen 5 L Creatinine 0.73 Glucose Level 107 Calcium Level 8.4 Magnesium Level 1.6 L Hepatitis B Surface Antigen NEGATIVE Hepatitis B Core Total Antibody NEGATIVE Hepatitis C Antibody NEGATIVE Medications Medications Current Medications Ondansetron HCl (Zofran Inj) 4 mg Q4H PRN IV NAUSEA AND/OR VOMITING Last administered on 02/25/17 12:09; Admin Dose 4 MG; Start 02/23/17 at 16:30 Sucralfate (Carafate Susp) 1 gm QID GTB Last administered on 02/24/17 20:43; Admin Dose 1 GM; Start 02/23/17 at 17:00 Pantoprazole (Protonix Iv) 40 mg DAILY@06 IV Last administered on 02/25/17 06: 00; Admin Dose 40 MG; Start 02/24/17 at 06:00 Morphine Sulfate (morphine) 4 mg Q4H PRN IV PAIN LEVEL 7-10 Last administered on 02/24/17 22:05; Admin Dose 4 MG; Start 02/23/17 at 16:30 Enoxaparin Sodium (Lovenox) 30 mg HS SC Last administered on 02/24/17 20:43; Admin Dose 30 MG; Start 02/23/17 at 20:00 Aspirin (Halfprin) 81 mg DAILY PO Last administered on 02/24/17 09:03; Admin Dose 81 MG; Start 02/24/17 at 09:00 Zolpidem Tartrate 10 mg 10 mg HS PRN PO INSOMNIA Last administered on 22:04; Admin Dose 10 MG; Start 02/23/17 at 20:00 Potassium Chloride/Dextrose/ Sod Cl (D5-1/2ns + KCl 40 Meq) 1,000 ml @ 125 mls/ hr Q8H IV Last administered on 02/25/17 12:10; Admin Dose 125 MLS/HR; Start at 11:30 KYAW EM NP Feb 25, 2017 15:25
--- NOTE | 2017-02-25 18:03 | CONS ---
Date/Time of Note Date/Time of Note DATE: 02/25/17 TIME: 18:01 Assessment/Plan Assessment/Plan Additional Assessment/Plan Abdominal and chest pain Ejection fraction Mildly elevated LFTs -Serial cardiac enzymes remain negative, echocardiogram with no effusion and normal ejection fraction. Undergoing GI evaluation Consultation Date/Type/Reason Admit Date/Time Feb 23, 2017 at 14:43 Type of Consultation: cv 24 HR Interval Summary Free Text/Dictation Still with abdominal pain which is intermittent. Denies shortness of breath Exam/Review of Systems Vital Signs Vitals Vital Signs Date Time Temp Pulse Resp B/P Pulse Ox O2 Delivery O2 Flow Rate FiO2 02/25/17 16:00 77 02/25/17 15:20 98.4 18 103/64 100 02/24/17 16:26 Room Air Intake and Output 02/24/17 02/24/17 02/25/17 15:00 23:00 07:00 Intake Total 1075 ml 720 ml Balance 1075 ml 720 ml Exam No apparent distress Constitutional: alert, oriented Head: normocephalic Respiratory: clear to auscultation, normal air movement, other Cardiovascular: other (S1-S2 heard), regular rate and rhythm Gastrointestinal: bowel sounds, other (Discomfort with palpation epigastric and right upper quadrant, no guarding), soft Extremities: other (No edema) Results Result Diagram: 02/25/17 0542 02/25/17 0542 Results 24 hrs Laboratory Tests Test 02/25/17 05:42 02/25/17 10:41 White Blood Count 5.6 # Red Blood Count 3.50 L Hemoglobin 10.7 L Hematocrit 31.7 L Mean Corpuscular Volume 90.6 Mean Corpuscular Hemoglobin 30.6 Mean Corpuscular Hemoglobin Concent 33.8 Red Cell Distribution Width 12.4 Platelet Count 157 Mean Platelet Volume 11.4 H Neutrophils % 60.9 Lymphocytes % 27.5 Monocytes % 7.5 Eosinophils % 3.4 Basophils % 0.5 Nucleated Red Blood Cells % 0.0 Neutrophils # 3.4 Lymphocytes # 1.5 Monocytes # 0.4 Eosinophils # 0.2 Basophils # 0.0 Nucleated Red Blood Cells # 0.0 Sodium Level 139 Potassium Level 3.4 L Chloride Level 109 Carbon Dioxide Level 24 Anion Gap 9 Blood Urea Nitrogen 5 L Creatinine 0.73 Glucose Level 107 Calcium Level 8.4 Magnesium Level 1.6 L Hepatitis B Surface Antigen NEGATIVE Hepatitis B Core Total Antibody NEGATIVE Hepatitis C Antibody NEGATIVE Medications Medications Current Medications Ondansetron HCl (Zofran Inj) 4 mg Q4H PRN IV NAUSEA AND/OR VOMITING Last administered on 02/25/17 12:09; Admin Dose 4 MG; Start 02/23/17 at 16:30 Sucralfate (Carafate Susp) 1 gm QID GTB Last administered on 02/24/17 20:43; Admin Dose 1 GM; Start 02/23/17 at 17:00 Morphine Sulfate (morphine) 4 mg Q4H PRN IV PAIN LEVEL 7-10 Last administered on 02/24/17 22:05; Admin Dose 4 MG; Start 02/23/17 at 16:30 Enoxaparin Sodium (Lovenox) 30 mg HS SC Last administered on 02/24/17 20:43; Admin Dose 30 MG; Start 02/23/17 at 20:00 Aspirin (Halfprin) 81 mg DAILY PO Last administered on 02/24/17 09:03; Admin Dose 81 MG; Start 02/24/17 at 09:00 Zolpidem Tartrate 10 mg 10 mg HS PRN PO INSOMNIA Last administered on 22:04; Admin Dose 10 MG; Start 02/23/17 at 20:00 Potassium Chloride/Dextrose/ Sod Cl (D5-1/2ns + KCl 40 Meq) 1,000 ml @ 125 mls/ hr Q8H IV Last administered on 02/25/17 12:10; Admin Dose 125 MLS/HR; Start at 11:30 Pantoprazole (Protonix Tab) 40 mg DAILY@06 PO ; Start 02/26/17 at 06:00 Francis Brand DO Feb 25, 2017 18:03
[2017-02-25] MEDS: LIDOCAINE 2% (SDV) 5 ML INJ ONE ×2 (18:16→22:32)
[2017-02-25] MEDS ORDERED: PROPOFOL 20 ML ONE (18:16)
--- NOTE | 2017-02-25 18:47 | HPN ---
Date/Time of Note Date/Time of Note DATE: 02/25/17 TIME: 18:47 Interval H&P Admission Note Pt. seen H&P reviewed: No system changes JUICE JIMÉNEZ MD Feb 25, 2017 18:47
--- NOTE | 2017-02-25 18:50 | OPPN ---
Date/Time of Note Date/Time of Note DATE: 02/25/17 TIME: 18:47 Proc Note GI Procedure Date 02/25/17 Pre-procedure Diagnosis * Abdominal pain Post-procedure Diagnosis Impression: * Moderate gastritis. Rule out H. pylori infection. Biopsies obtained * Moderate duodenitis. Plan: * Review pathology as soon as available * Increase Protonix to 40 mg twice daily * Obtain CT abdomen and pelvis with and without contrast * Advance diet as tolerated * Review pathology as soon as available . Procedure Performed: Endoscopy (With biopsies) Surgeon JUICE JIMÉNEZ MD . Rn Pediatric none Tourniquet Time none EBL none Transfusion required none Biopsy 1: Gastric body and antrum/rule out H. pylori Grafts/Implants none Tubes/Drains none Complication(s) none Pt Condition post procedure: stable Disposition: PACU Indications: other (Nominal pain) Procedure Description After informed consent, with the patient/relatives understanding the procedure, its indications, potential risks and complications, including but not limited to : allergic reaction, bleeding, perforation or infection, and after all pertinent questions were answered to the patients satisfaction, the patient/ relatives signed witnessed informed consent. Following this, premedication was administered slowly IV push under careful cardiovascular and respiratory monitoring with pulse oximetry, automatic blood pressure, and cardiac monitor. Once the sedative effect was achieved the patient was place in the left lateral decubitus, the panendoscope was introduced and advanced under visual control. Careful examination of the upper gastrointestinal tract, both on insertion as well as withdrawal of the instrument disclosing the following findings: ESOPHAGUS: the mucosa of the entire esophagus was carefully examined and showed the following findings: the mucosa appears within normal limits. There is no evidence of esophagitis, varices, neoplasm, or stricture. No Hiatal Hernia identified. STOMACH: Upon entrance to the stomach air was insufflated, the gastric mccain distended normally. The mucosa of the fundus, body and antrum of the stomach was carefully examined both head-on and on retroflexion, and showed the following findings: There is moderate erythema and edema of the mucosa of the body and antrum of the stomach. Biopsies were obtained to rule out H. pylori infection. Otherwise the mucosa appears within normal limits with no abnormalities. There is no evidence of ulcers or neoplasm. PYLORUS: The pylorus was carefully examined and showed the following findings: the pylorus appears patent and within normal limits, with no evidence of gastric outlet obstruction. DUODENUM: The duodenal mucosa was carefully examined in the duodenal bulb as well as the second portion of the duodenum and showed the following findings: There is moderate erythema and edema of the mucosa of the duodenal bulb. No definitive ulcerations are present. Otherwise the mucosa appears unremarkable with no evidence of ulcer or neoplasm. Copies To: CC: JUICE JIMÉNEZ MD, MORDO MD Feb 25, 2017 18:50
[2017-02-25] MEDS ORDERED: BARIUM SULF 2% 450 ML BTL (BERRY SMOOTHIE) PO ONE (20:00)
[2017-02-25] MEDS: PANTOPRAZOLE (EC) 40 MG TAB PO SCH (20:54)
[2017-02-25] MEDS: ENOXAPARIN 30 MG/0.3 ML SYG SC SCH (21:00)
[2017-02-25] MEDS: morphine 4 MG/ML VIAL IV PRN (23:11)
[2017-02-26] VITALS (13 sets, daily range): BP systolic 82–117; BP diastolic 47–68; PULSE 45–59; RESP 18–19
[2017-02-26] MEDS: D5W-0.45 NACL + KCL 40 MEQ 1,000 ML IV SCH ×3 (02:07→19:30)
[2017-02-26] MEDS ORDERED: BARIUM SULF 2% 450 ML BTL (BERRY SMOOTHIE) PO ONE (06:00)
[2017-02-26] MEDS ORDERED: PANTOPRAZOLE (EC) 40 MG TAB PO SCH (06:00)
[2017-02-26] MEDS: PANTOPRAZOLE (EC) 40 MG TAB PO SCH ×2 (06:13→18:13)
[2017-02-26] MEDS: SUCRALFATE (100 MG/ML) 10ML CUP GTB SCH ×4 (07:40→21:00)
[2017-02-26] MEDS: ONDANSETRON 4 MG INJ IV PRN ×3 (08:26→21:46)
[2017-02-26 08:38] LABS: BASOPHILS % 0.6 % (0.0-2.0); EOSINOPHILS # 0.1 10^3/ul (0.0-0.5); EOSINOPHILS % 2.6 % (0.0-7.0); HEMATOCRIT 31.4 % (37.0-47.0); HEMOGLOBIN 10.7 g/dl (12.0-16.0); LYMPHOCYTES # 1.2 10^3/ul (0.8-2.9); MEAN CORPUSCULAR HEMOGLOBIN 30.7 pg (29.0-33.0); MEAN CORPUSCULAR HGB CONC 34.1 g/dl (32.0-37.0); MONOCYTE # 0.4 10^3/ul (0.3-0.9); MONOCYTES % 8.2 % (0.0-11.0); NEUTROPHIL # 3.5 10^3/ul (1.6-7.5); NEUTROPHILS % 65.2 % (39.0-77.0); PLATELET COUNT 156 10^3/UL (140-415); RED BLOOD COUNT 3.49 10^6/ul (4.20-5.40); RED CELL DISTRIBUTION WIDTH 12.4 % (11.5-14.5); WHITE BLOOD COUNT 5.3 10^3/ul (4.8-10.8)
[2017-02-26 08:47] LABS: ALBUMIN 3.3 g/dl (3.3-4.9); ALBUMIN/GLOBULIN RATIO 0.8; BILIRUBIN,INDIRECT 0.4 mg/dl (0-1.1); BILIRUBIN,TOTAL 0.4 mg/dl (0.2-1.3); CALCIUM 8.8 mg/dl (8.4-10.2); CREATININE 0.77 mg/dl (0.44-1.00); POTASSIUM 4.1 mmol/L (3.5-5.1); TOTAL PROTEIN 7.4 g/dl (6.1-8.1)
[2017-02-26] MEDS ORDERED: SOD CHLORIDE 0.9% 100 ML ONE (09:35)
[2017-02-26] MEDS ORDERED: IODIXANOL LOCM 100 ML BTL ONE (09:35)
--- NOTE | 2017-02-26 12:42 | RADRPT ---
PROCEDURE: CT Abdomen and Pelvis with Contrast CLINICAL INDICATION: Epigastric pain TECHNIQUE: Transaxial images were obtained through the abdomen and pelvis on a multi-slice scanner following the intravenous administration of 100 ml of Visipaque 320 contrast. No oral contrast had previously been given. Sagittal and coronal re-formations were subsequently reconstructed. One or more of the following dose reduction techniques were used: - Automated exposure control. - Adjustment of the mA and/or kV according to patient size. - Use of iterative reconstruction technique. Radiation dose: CTDIvol = 12.86 mGy; DLP = 731.39 mGy-cm. COMPARISON: 02/23/2017 FINDINGS: Lung bases: Since the previous study, there has been interval development of a trace of left pleural fluid accumulation and discoid atelectasis of the left posterior sulcus. Bilateral breast implants are again noted. Liver: The liver remains mildly enlarged with no focal lesion identified. Gallbladder: The gallbladder lumen is dense which likely represents vicarious excretion of contrast or possibly sludge. No radiopaque stone or gallbladder wall thickening is evident. Bile ducts: The intra and extrahepatic bile ducts are normal in caliber. Pancreas: Appears normal with no mass or inflammation evident. Spleen: Normal in size with no focal lesion. Adrenals: Normal with no mass identified. Kidneys, ureters and bladder: The kidneys enhance normally and are normal in size and there is no ma ss, pathological calcification, or hydronephrosis evident. There is no perinephric stranding. The ur eters are normal in caliber and no ureteroliths are identified. The bladder appears unremarkable. Reproductive organs: The uterus is anteverted and midline. A vaginal contraceptive device is again e vident. A 3.2 cm right adnexal cyst is again evident. A 9 mm left adnexal cyst is identified. Stomach, bowel, and mesentery: The stomach appears unremarkable. Several unorganized fluid distended segments of small bowel are seen within the pelvis compatible with ileus. Substantial stool is seen within the right colon. There is no evidence of bowel obstruction or inflammation. Appendix: A normal retrocecal vermiform appendix is evident. Peritoneum: There is a small amount of free intraperitoneal fluid seen within the right cul-de-sac. No free air is evident. There is a small fat containing umbilical hernia. Aorta: Normal in caliber with no aneurysmal dilatation. IVC: Unremarkable. Lymph nodes: No pathologically enlarged nodes are identified. Osseous structures: The osseous elements appear intact. IMPRESSION: 1. When compared to the previous study of 02/23/2017, there are now mildly fluid distended segments of small bowel are seen within the pelvis most compatible with ileus. There is again no evidence of bowel obstruction or inflammation with a normal-appearing vermiform appendix evident. 2. There is again no evidence of urinary outflow obstruction or ureterolithiasis within normal appe aring bladder. 3. A 3.2 cm right adnexal cyst is again evident and there is the suggestion of a 9 mm left adnexal c yst. This could be further evaluated by means of pelvic sonography if indicated. A vaginal contracep tive device is again noted. 4. There is now a small amount of free intraperitoneal fluid seen in the right cul-de-sac but no fr ee air is identified. 5. Small fat containing umbilical hernia. 6. Either vicarious excretion of contrast or sludge is seen within the otherwise unremarkable appea ring gallbladder and no bile duct dilatation is evident. 7. Mild hepatomegaly with no focal lesion. 8. Interval development of a trace gravitating left pleural fluid accumulation and discoid atelecta sis in the left posterior sulcus. 9. Breast implants are again noted. Physician Octavia Date Time Electronically viewed and signed by Physician Octavia on 02/26/2017 12:41 /
--- NOTE | 2017-02-26 13:48 | CONS ---
Date/Time of Note Date/Time of Note DATE: 02/26/17 TIME: 13:46 Assessment/Plan Assessment/Plan Additional Assessment/Plan Abdominal and chest pain Ejection fraction Mildly elevated LFTs Gastritis -Serial cardiac enzymes remain negative, echocardiogram with no effusion and normal ejection fraction. Undergoing GI evaluation. Given possible GI etiology no evidence of cardiac pathology, would hold aspirin at the current time Consultation Date/Type/Reason Admit Date/Time Feb 23, 2017 at 14:43 Type of Consultation: cv 24 HR Interval Summary Free Text/Dictation Feeling better, denies chest pain, shortness of breath Exam/Review of Systems Vital Signs Vitals Vital Signs Date Time Temp Pulse Resp B/P Pulse Ox O2 Delivery O2 Flow Rate FiO2 02/26/17 13:00 98.0 50 18 113/67 98 02/25/17 19:12 Room Air 02/25/17 18:26 5 Intake and Output 02/25/17 02/25/17 02/26/17 15:00 23:00 07:00 Intake Total 600 ml 231 ml 1925 ml Balance 600 ml 231 ml 1925 ml Exam No apparent distress Constitutional: alert, oriented Head: normocephalic Respiratory: other (Coarse breath sounds bilaterally) Cardiovascular: other (S1-S2 heard), regular rate and rhythm Gastrointestinal: bowel sounds, non-tender, soft Extremities: other (No edema) Results Result Diagram: 02/26/17 0712 02/26/17 0712 Results 24 hrs Laboratory Tests Test 02/26/17 07:12 White Blood Count 5.3 Red Blood Count 3.49 L Hemoglobin 10.7 L Hematocrit 31.4 L Mean Corpuscular Volume 90.0 Mean Corpuscular Hemoglobin 30.7 Mean Corpuscular Hemoglobin Concent 34.1 Red Cell Distribution Width 12.4 Platelet Count 156 Mean Platelet Volume 12.0 H Neutrophils % 65.2 Lymphocytes % 23.0 Monocytes % 8.2 Eosinophils % 2.6 Basophils % 0.6 Nucleated Red Blood Cells % 0.0 Neutrophils # 3.5 Lymphocytes # 1.2 Monocytes # 0.4 Eosinophils # 0.1 Basophils # 0.0 Nucleated Red Blood Cells # 0.0 Sodium Level 138 Potassium Level 4.1 Chloride Level 109 Carbon Dioxide Level 25 Anion Gap 8 Blood Urea Nitrogen 5 L Creatinine 0.77 Glucose Level 102 Calcium Level 8.8 Total Bilirubin 0.4 Direct Bilirubin 0.00 Indirect Bilirubin 0.4 Aspartate Amino Transf (AST/SGOT) 30 Alanine Aminotransferase (ALT/SGPT) 86 H Alkaline Phosphatase 83 Total Protein 7.4 Albumin 3.3 Globulin 4.10 H Albumin/Globulin Ratio 0.80 Medications Medications Current Medications Ondansetron HCl (Zofran Inj) 4 mg Q4H PRN IV NAUSEA AND/OR VOMITING Last administered on 02/26/17 08:26; Admin Dose 4 MG; Start 02/23/17 at 16:30 Sucralfate (Carafate Susp) 1 gm QID GTB Last administered on 02/25/17 20:55; Admin Dose 1 GM; Start 02/23/17 at 17:00 Morphine Sulfate (morphine) 4 mg Q4H PRN IV PAIN LEVEL 7-10 Last administered on 02/25/17 23:11; Admin Dose 4 MG; Start 02/23/17 at 16:30 Enoxaparin Sodium (Lovenox) 30 mg HS SC Last administered on 02/25/17 21:00; Admin Dose 30 MG; Start 02/23/17 at 20:00; Status Future Hold Aspirin (Halfprin) 81 mg DAILY PO Last administered on 02/24/17 09:03; Admin Dose 81 MG; Start 02/24/17 at 09:00 Zolpidem Tartrate 10 mg 10 mg HS PRN PO INSOMNIA Last administered on 22:04; Admin Dose 10 MG; Start 02/23/17 at 20:00 Potassium Chloride/Dextrose/ Sod Cl (D5-1/2ns + KCl 40 Meq) 1,000 ml @ 125 mls/ hr Q8H IV Last administered on 02/26/17 12:57; Admin Dose 125 MLS/HR; Start at 11:30 Pantoprazole (Protonix Tab) 40 mg BID@06,18 PO Last administered on 02/26/17 06:13; Admin Dose 40 MG; Start 02/25/17 at 20:00 Francis Brand DO Feb 26, 2017 13:48
[2017-02-26] MEDS: morphine 4 MG/ML VIAL IV PRN (16:25)
--- NOTE | 2017-02-26 17:45 | PN ---
Date/Time of Note Date/Time of Note DATE: 02/26/17 TIME: 17:38 Assessment/Plan VTE Prophylaxis VTE Prophylaxis Intervention: SCD's Lines/Catheters [facility] Peripheral IV Urinary Cath still in place: No Assessment/Plan Assessment/Plan Assessment * Abdominal pain EGD Duodenitis Moderate gastritis Plan * continue present management * case discussed with Dr Yanes * further orders will depend on clinical course Subjective 24 Hr Interval Summary Free Text/Dictation * Course reviewed * No untoward events overnight * EGD Moderate gastritis. Rule out H. pylori infection. Biopsies obtained Moderate duodenitis. * Biopsy Stomach, antrum/body, biopsy: -- Oxyntic mucosa showing no significant histopathological abnormality. Exam/Review of Systems Vital Signs Vitals Vital Signs Date Time Temp Pulse Resp B/P Pulse Ox O2 Delivery O2 Flow Rate FiO2 02/26/17 15:39 98.0 53 18 117/68 98 02/25/17 19:12 Room Air 02/25/17 18:26 5 Intake and Output 02/25/17 02/25/17 02/26/17 15:00 23:00 07:00 Intake Total 600 ml 231 ml 1925 ml Balance 600 ml 231 ml 1925 ml Exam Constitutional: alert, well developed Neck: non-tender, supple Respiratory: clear to auscultation, normal air movement Cardiovascular: nl pulses, regular rate and rhythm Gastrointestinal: non-tender, soft Musculoskeletal: nl extremities to inspection Neurological: nl speech, nl strength Skin: nl turgor, No rash or lesions Results Result Diagram: 02/26/17 0712 02/26/17 0712 Results 24 hrs Laboratory Tests Test 02/26/17 07:12 White Blood Count 5.3 Red Blood Count 3.49 L Hemoglobin 10.7 L Hematocrit 31.4 L Mean Corpuscular Volume 90.0 Mean Corpuscular Hemoglobin 30.7 Mean Corpuscular Hemoglobin Concent 34.1 Red Cell Distribution Width 12.4 Platelet Count 156 Mean Platelet Volume 12.0 H Neutrophils % 65.2 Lymphocytes % 23.0 Monocytes % 8.2 Eosinophils % 2.6 Basophils % 0.6 Nucleated Red Blood Cells % 0.0 Neutrophils # 3.5 Lymphocytes # 1.2 Monocytes # 0.4 Eosinophils # 0.1 Basophils # 0.0 Nucleated Red Blood Cells # 0.0 Sodium Level 138 Potassium Level 4.1 Chloride Level 109 Carbon Dioxide Level 25 Anion Gap 8 Blood Urea Nitrogen 5 L Creatinine 0.77 Glucose Level 102 Calcium Level 8.8 Total Bilirubin 0.4 Direct Bilirubin 0.00 Indirect Bilirubin 0.4 Aspartate Amino Transf (AST/SGOT) 30 Alanine Aminotransferase (ALT/SGPT) 86 H Alkaline Phosphatase 83 Total Protein 7.4 Albumin 3.3 Globulin 4.10 H Albumin/Globulin Ratio 0.80 Medications Medications Current Medications Ondansetron HCl (Zofran Inj) 4 mg Q4H PRN IV NAUSEA AND/OR VOMITING Last administered on 02/26/17 16:25; Admin Dose 4 MG; Start 02/23/17 at 16:30 Sucralfate (Carafate Susp) 1 gm QID GTB Last administered on 02/25/17 20:55; Admin Dose 1 GM; Start 02/23/17 at 17:00 Morphine Sulfate (morphine) 4 mg Q4H PRN IV PAIN LEVEL 7-10 Last administered on 02/26/17 16:25; Admin Dose 4 MG; Start 02/23/17 at 16:30 Enoxaparin Sodium (Lovenox) 30 mg HS SC Last administered on 02/25/17 21:00; Admin Dose 30 MG; Start 02/23/17 at 20:00; Status Future Hold Zolpidem Tartrate 10 mg 10 mg HS PRN PO INSOMNIA Last administered on 22:04; Admin Dose 10 MG; Start 02/23/17 at 20:00 Potassium Chloride/Dextrose/ Sod Cl (D5-1/2ns + KCl 40 Meq) 1,000 ml @ 125 mls/ hr Q8H IV Last administered on 02/26/17 12:57; Admin Dose 125 MLS/HR; Start at 11:30 Pantoprazole (Protonix Tab) 40 mg BID@06,18 PO Last administered on 02/26/17 06:13; Admin Dose 40 MG; Start 02/25/17 at 20:00 KYAW EM NP Feb 26, 2017 17:45
[2017-02-26] MEDS ORDERED: MAGNESIUM CITRATE 300 ML BTL PO ONE (20:00)
--- NOTE | 2017-02-26 21:44 | RADRPT ---
PROCEDURE: XR Chest. CLINICAL INDICATION: Chest and abdomen pain. TECHNIQUE: Two views. Frontal and lateral. COMPARISON: No prior study is available for comparison. FINDINGS: The lungs are clear. The heart size is normal. There is no pleural effusion. There is no pneumothorax. IMPRESSION: 1. Normal chest radiograph. RPTAT: QQ .Rafael Miranda MD, MD Date Time Electronically viewed and signed by .Rafael Miranda MD, MD on 02/26/2017 21:43 .R/
[2017-02-27] VITALS (10 sets, daily range): BP systolic 93–125; BP diastolic 51–67; PULSE 43–75; RESP 18–19
[2017-02-27] MEDS: D5W-0.45 NACL + KCL 40 MEQ 1,000 ML IV SCH ×2 (03:30→09:23)
[2017-02-27] MEDS: PANTOPRAZOLE (EC) 40 MG TAB PO SCH (06:28)
--- NOTE | 2017-02-27 08:26 | RADRPT ---
PROCEDURE: HIDA scan CLINICAL INDICATION: 36 -year-old patient complaining of abdominal pain. TECHNIQUE: Following the intravenous injection of 8 mCi of Tc-99m mebrofenin, multiple images of t he abdomen were obtained up to 60-minutes post injection. At this point of time, 2 mg of morphine lopez lfate were injected intravenously to the patient and imaging acquisition was continued for additiona l 30 minutes. COMPARISON: No prior HIDA scans. FINDINGS: The liver is promptly visualized, demonstrates homogeneous distribution of radionuclide. There is visualization of the common bile duct and gastrointestinal activity within normal time. The gallbladder is not visualized up to 90 minutes post injection, including the images with morphin e augmentation. IMPRESSION: 1. Persistent nonvisualization of the gallbladder up to 90 minutes post injection, including the im ages with morphine augmentation. 2. No evidence of common bile duct obstruction. RPTAT: HH Physician Chirag Date Time Electronically viewed and signed by Physician Chirag on 02/27/2017 08:25 /
--- NOTE | 2017-02-27 08:48 | PN ---
DATE: 02/26/2017 SUBJECTIVE: The patient overall feels better. Very mild abdominal discomfort. He has not had any BM so far. Denies any chest pains. OBJECTIVE DATA: GENERAL: Patient is afebrile. Blood pressure 1/37. O2 saturation is 98 percent. CHEST: Clinically clear. HEART: S1, S2. No definite gallops. ABDOMEN: Soft, nontender. Bowel sounds hypoactive. EXTREMITIES: No edema. LABORATORY: WBC count 5.3, hematocrit 31.4. Potassium 4.1. AST 32, ALT is 86. IMAGING: CT scan of the abdomen was reviewed which showed lumen of the gallbladder which is dense secondary to vicarious excretion of contrast, or possibly sludge. No gallbladder wall thickening. A 3.2 cm right adnexal cyst present. Fluid distended segments of small bowel seen in the pelvis. Moderate amount of stool in the right colon and small amount of free intraperitoneal fluid seen in the right cul-de-sac, but no free air. IMPRESSION: 1. Abdominal pain secondary to duodenitis and gastritis. 2. Mild anemia. Stool for OB has not be done as patient is not had a BM to ascertain any GI bleed. 3. Mild ileus. 4. Discoid atelectasis in the left posterior sulcus with on the CT scan. PLAN: Dr. Yanes's GI consultation greatly appreciated. Will proceed with HIDA scan, as recommended by Dr. Yanes. Repeat chest x-ray, PA and lateral today. Started on incentive spirometry and follow condition. Dictated By: Chuy Cevallos MD /radha/enrique /Document#: [id number]
[2017-02-27] MEDS: SUCRALFATE (100 MG/ML) 10ML CUP GTB SCH ×2 (09:23→12:35)
--- NOTE | 2017-02-27 11:54 | PN ---
Date/Time of Note Date/Time of Note DATE: 02/27/17 TIME: 11:53 Assessment/Plan VTE Prophylaxis VTE Prophylaxis Intervention: SCD's Lines/Catheters IV Catheter Type (from Nrs): Peripheral IV Urinary Cath still in place: No Assessment/Plan Assessment/Plan Abdominal and chest pain Ejection fraction Mildly elevated LFTs Gastritis -Serial cardiac enzymes remain negative, echocardiogram with no effusion and normal ejection fraction. Undergoing GI evaluation. Given possible GI etiology no evidence of cardiac pathology, would hold aspirin at the current time -d/c planning ok Subjective 24 Hr Interval Summary Free Text/Dictation The patinet with no change overnight and no symptoms Exam/Review of Systems Vital Signs Vitals Vital Signs Date Time Temp Pulse Resp B/P Pulse Ox O2 Delivery O2 Flow Rate FiO2 02/27/17 11:44 98.0 52 18 93/51 98 02/25/17 19:12 Room Air 02/25/17 18:26 5 Intake and Output 02/26/17 02/26/17 02/27/17 15:00 23:00 07:00 Intake Total 550 ml 100 ml 500 ml Balance 550 ml 100 ml 500 ml Results Result Diagram: 02/26/17 0712 02/26/17 0712 Results 24 hrs Laboratory Tests Test 02/27/17 05:00 Stool Occult Blood POSITIVE Medications Medications Current Medications Ondansetron HCl (Zofran Inj) 4 mg Q4H PRN IV NAUSEA AND/OR VOMITING Last administered on 02/26/17 21:46; Admin Dose 4 MG; Start 02/23/17 at 16:30 Sucralfate (Carafate Susp) 1 gm QID GTB Last administered on 02/27/17 09:23; Admin Dose 1 GM; Start 02/23/17 at 17:00 Morphine Sulfate (morphine) 4 mg Q4H PRN IV PAIN LEVEL 7-10 Last administered on 02/26/17 16:25; Admin Dose 4 MG; Start 02/23/17 at 16:30 Enoxaparin Sodium (Lovenox) 30 mg HS SC Last administered on 02/25/17 21:00; Admin Dose 30 MG; Start 02/23/17 at 20:00; Status Future Hold Zolpidem Tartrate 10 mg 10 mg HS PRN PO INSOMNIA Last administered on 22:04; Admin Dose 10 MG; Start 02/23/17 at 20:00 Potassium Chloride/Dextrose/ Sod Cl (D5-1/2ns + KCl 40 Meq) 1,000 ml @ 125 mls/ hr Q8H IV Last administered on 02/27/17 09:23; Admin Dose 125 MLS/HR; Start at 11:30 Pantoprazole (Protonix Tab) 40 mg BID@06,18 PO Last administered on 02/27/17 06:28; Admin Dose 40 MG; Start 02/25/17 at 20:00 EVA PHAM MD Feb 27, 2017 11:54
--- NOTE | 2017-02-27 20:28 | DS ---
DATE OF ADMISSION: 02/23/2017 DATE OF DISCHARGE: 02/27/2017 FINAL DIAGNOSES: 1. Severe epigastric and chest pain with no evidence of acute coronary syndrome. 2. Duodenitis, moderate gastritis with cough, low-grade gastrointestinal bleed. 3. Evidence of non visualization of gallbladder on the HIDA scan with no clinical evidence of acute cholecystitis. No evidence of cholelithiasis. Presence of sludge noted. 4. Bilateral adnexal cysts, 3.2 cm on the right and 9 mm on the left. 5. Discoid atelectasis on the left posterior sulcus, improved. HISTORY OF PRESENT ILLNESS: The patient is a 36-year-old lady presenting to the emergency room with sudden onset of severe retrosternal and epigastric pain with radiation to the back. Pain was constant with no palpitations or shortness of breath. She did have mild diaphoresis and the pain was also pleuritic. Patient was admitted to the telemetry and the patient was seen by Dr. Brand from a cardiac standpoint and was placed on a course of Carafate with Protonix. Serial EKGs and troponins were nondiagnostic for acute coronary syndrome. The patient underwent ultrasound of the gallbladder, which showed some sludge with no evidence of cholecystitis or gallstones. There was borderline hepatomegaly. The patient also had mildly elevated LFTs, AST of 54, ALT of 97 on admission. Alk phos is normal. Serum HCG was negative. Amylase 97, lipase 60. LFTs stabilized and hepatitis B surface antigen, core antibody, and C antibody were negative. Hep A, IgM antibody was nonreactive. Stool for O and P came back positive. The patient is seen by Dr. Yanes from GI standpoint and the patient underwent upper endoscopy showed gastritis and duodenitis. The patient was severely constipated and was given 1 dose of Mag citrate with good results on February 26. The patient was asymptomatic on February 27, tolerating p.o. feeding and remained afebrile and she was discharged home after discussion with Dr. Yanes. The patient will follow up with general surgeon, as outpatient. We will repeat a CBC in 1 week. Continue PPI, namely Protonix 40 mg p.o. q.day. Abnormal LFTs, I suspect were related to probably element of nonalcoholic steatohepatitis. The patient will be advised regarding same. Dictated By: Chuy Cevallos MD /radha/daniel /Document#: [id number]
== END 2017-02-27 16:00 | disposition home or self-care (01) | DRG 391 ==
LOC: E/R 10:04 → TEL 14:43
PROVIDERS: ADMIT Internal Medicine; ATTEND Internal Medicine
PROC: 0DJ08ZZ Inspection of Upper Intestinal Tract, Via Natural or Artificial Opening Endoscopic (ICD-10-PCS; principal; 2017-02-25 18:00)
DX: R10.13 Epigastric pain (principal); K29.71 Gastritis, unspecified, with bleeding; K75.81 Nonalcoholic steatohepatitis (NASH); J98.11 Atelectasis; K29.80 Duodenitis without bleeding; R07.89 Other chest pain; K59.00 Constipation, unspecified
CPT/HCPCS: 36415; 71010; 71020; 71275; 74177; 76705; 78227; 80048; 80053; 82150; 82270; 82550; 82553; 83690; 83735; 84484; 84703; 85025; 85378; 85610; 85730; 86140; 86704; 86709; 86803; 87340; 93005; 93306; 96374; 96375; A9537; C9113; J1170; J1650; J2060; J2270; J2405; J3475; J3480; J7030; J7042; Q9967

== ENCOUNTER 2017-06-01 08:35 | Emergency (ER) | END 2017-06-01 09:43 | disposition home or self-care (01) ==